=== PATIENT | male | born 1990 | race Caucasian/White ===

== ENCOUNTER 2025-05-22 09:55 | Emergency (ER) | payer OTHER ==
[~2025-05-22] VITALS: Ht 170.2 cm; Wt 70.0 kg
[2025-05-22 09:59] VITALS: O2SAT 99
[2025-05-22] MEDS: TETANUS, DIPHTHERIA, PERTUSSIS VAC/PF 0.5ML (>10YR OLD) IM ONE (11:56)
[2025-05-22] MEDS: LIDOCAINE HCL 1% 20ML VIAL INFIL SCH (11:56)
[2025-05-22 12:37] VITALS: BP 120/70; PULSE 62; RESP 16; TEMP 36.8; O2SAT 99
== END 2025-05-22 12:39 | disposition home or self-care (01) ==
LOC: ER 09:55
DX: S61.411A Laceration without foreign body of right hand, initial encounter (principal); X58.XXXA Exposure to other specified factors, initial encounter; Y93.89 Activity, other specified; Y92.89 Other specified places as the place of occurrence of the external cause; Y99.8 Other external cause status
CPT/HCPCS: 12001; 73130; 90471; 90715; 99283